=== PATIENT | male | born 1975 | race Caucasian/White ===

== ENCOUNTER → 2017-05-07 | Outpatient (CLI) | payer BC ==
[~2017-05-07] MED LIST: CEPHALEXIN500 M1 PO; NKHM
[2017-05-07 16:36] LABS: BASO # 0.1 10*3/uL (0.0-0.1); BASO % 1.1 % (0.0-1.0); EOS # 0.3 10*3/uL (0.0-0.4); HEMATOCRIT 43.3 % (42.0-52.0); HEMOGLOBIN 14.8 g/dl (14.0-18.0); LYMPH # 1.7 10*3/uL (1.3-4.4); LYMPH % 29.7 % (27.0-41.0); MEAN CELL VOLUME 88.2 fl (80.0-94.0); MEAN CORPUSCULAR HGB 30.1 pg (27.0-31.0); MEAN CORPUSCULAR HGB CONC 34.2 g/dl (33.0-37.0); MEAN PLATELET VOLUME 9.2 fl (9.6-12.3); MONO # 0.7 10*3/uL (0.1-1.0); MONO % 12.6 % (3.0-9.0); NEUT # 2.9 10*3/uL (2.3-7.9); NEUT % 51.4 % (47.0-73.0); PLATELET COUNT AUTOMATED 206 10*3/uL (130-400); RED BLOOD COUNT 4.91 10*6/uL (4.50-5.90); RED CELL DISTRI WIDTH 12.5 % (0-14.5); WHITE BLOOD COUNT 5.7 10*3/uL (4.8-10.8)
[2017-05-07 16:51] LABS: ALBUMIN 3.8 gm/dl (3.1-4.5); ALKALINE PHOSPHATASE 66 U/L (45-117); BUN 17 mg/dl (7-24); CHLORIDE 103 mmol/L (98-107); CHOLESTEROL 222 mg/dL (<200); CREATININE 1.03 mg/dL (0.70-1.30); HDL CHOLESTEROL 38 mg/dl (40-60); LDL CHOLESTEROL 145 mg/dL (9-159); POTASSIUM 3.8 mmol/L (3.5-5.1); SGOT/AST 24 IU/L (3-35); SGPT/ALT 37 U/L (12-78); SODIUM 139 mmol/L (136-145); TOTAL PROTEIN 7.9 gm/dL (6.4-8.2); TRIGLYCERIDES 197 mg/dl (<150); VLDL CHOLESTEROL 39 mg/dL (6-40)
== END | disposition home or self-care (01) ==
LOC: LAB 16:12
PROVIDERS: Internal Medicine
DX: E66.09 Other obesity due to excess calories (principal)

== ENCOUNTER → 2019-09-21 | Outpatient (CLI) | payer BC ==
--- NOTE | 2019-09-21 09:45 | NUR ---
INFORMED CONSENT OBTAINED FOR STANDARD GXT WITH DR. AVERY. RESTING EKG NSR WITH A SUPINE HR OF 78 WITH BP 110/80 AND HR OF 82 WITH BP OF 98/70 IN STANDING POSITION. PT COMPLETED A 7:00 OF A NICOLE PROTOCOL WITH COMPLETION OF 1:00 STAGE III AT 3.4 MPH AND 14% GRADE. REACHED A PEAK HR OF 162 WHICH IS 92% OF PREDICTED MAX WITH A PEAK BP OF 148/60. TEST TERMINATED BECAUSE OF PHYSICIAN DISCRETION. HAD NO CHEST PAIN OR ANY EKG CHANGES. HAS AN AVERAGE EXERCISE TOLERANCE. LAST RECOVERY HR OF 96 WITH BP OF 108/70. NEGATIVE STANDARD GXT. AWAITING FOR ECHO IN STABLE CONDITION.
[2019-09-21 09:52] LABS: BASO # 0.1 10*3/uL (0.0-0.1); BASO % 1.6 % (0.0-1.0); EOS # 0.3 10*3/uL (0.0-0.4); EOS % 6.6 % (1.0-4.0); HEMATOCRIT 46.6 % (42.0-52.0); LYMPH # 1.5 10*3/uL (1.3-4.4); LYMPH % 33.3 % (27.0-41.0); MEAN CELL VOLUME 89.4 fl (80.0-94.0); MEAN CORPUSCULAR HGB 29.6 pg (27.0-31.0); MEAN PLATELET VOLUME 9.3 fl (9.6-12.3); MONO # 0.4 10*3/uL (0.1-1.0); MONO % 9.8 % (3.0-9.0); NEUT # 2.1 10*3/uL (2.3-7.9); NEUT % 48.5 % (47.0-73.0); PLATELET COUNT AUTOMATED 242 10*3/uL (130-400); RED BLOOD COUNT 5.21 10*6/uL (4.50-5.90); RED CELL DISTRI WIDTH 12.6 % (0-14.5); WHITE BLOOD COUNT 4.4 10*3/uL (4.8-10.8)
[2019-09-21 10:11] LABS: ALKALINE PHOSPHATASE 57 U/L (45-117); BUN 9 mg/dl (7-24); CHLORIDE 106 mmol/L (98-107); CHOLESTEROL 236 mg/dL (<200); CREATININE 1.01 mg/dL (0.70-1.30); HDL CHOLESTEROL 48 mg/dl (40-60); LDL CHOLESTEROL 158 mg/dL (9-159); POTASSIUM 3.8 mmol/L (3.5-5.1); SGOT/AST 14 IU/L (3-35); SGPT/ALT 31 U/L (12-78); SODIUM 138 mmol/L (136-145); TOTAL PROTEIN 7.8 gm/dL (6.4-8.2); TRIGLYCERIDES 150 mg/dl (<150); VLDL CHOLESTEROL 30 mg/dL (6-40)
[2019-09-21 11:15] LABS: VITAMIN D, 25-HYDROXY 27.7 ng/mL (30-100)
== END | disposition home or self-care (01) ==
LOC: CARD 00:15 → LAB 00:15 → CARD 09:30
PROVIDERS: Nurse Practitioner Family
DX: I31.3 Pericardial effusion (noninflammatory) (principal)